=== PATIENT | female | born 2000 | race Two or more races ===

== ENCOUNTER → 2025-04-29 07:58 | Outpatient (CLI) | payer OTHER | END | disposition home or self-care (01) | LOC: PRENATAL 07:58 | PROVIDERS: ATTEND Obstetrics & Gynecology Maternal & Fetal Medicine | DX: O26.843 Uterine size-date discrepancy, third trimester (principal); O36.8130 Decreased fetal movements, third trimester, not applicable or unspecified; O26.23 Pregnancy care for patient with recurrent pregnancy loss, third trimester; O43.93 Unspecified placental disorder, third trimester; Z3A.29 29 weeks gestation of pregnancy ==